=== PATIENT | female | born 1960 | race Hispanic/Latino ===

== ENCOUNTER 2018-07-22 10:52 | Outpatient (CLI) | payer MEDICARE ==
--- NOTE | 2018-07-22 14:17 | ULT ---
BILATERAL RENAL ULTRASOUND: Date: 07/22/18 HISTORY: Hypertension. Chronic kidney disease. COMPARISON: None. TECHNIQUE: Sagittal and transverse imaging of the kidneys performed. FINDINGS: Limited evaluation of the renal cortices. Solid or cortical masses could easily be obscured. Bilatera lly, no hydronephrosis. Right kidney measures 8.9 x 5.0 x 3.6 cm. Left kidney measures 9.6 x 4.5 x 4. 3 cm. Bladder is decompressed. Anechoic focus associated with the spleen measuring 4.7 x 4.5 x 6.2 cm may represent a splenic cyst. IMPRESSION: 1. Limited evaluation of the cortices. Grossly no hydronephrosis. 2. Possible splenic cyst. POS: [facility]
== END 2018-07-22 10:53 | disposition home or self-care (01) ==
LOC: BURULT 10:52
PROVIDERS: ATTEND Internal Medicine Nephrology
DX: I12.9 Hypertensive chronic kidney disease with stage 1 through stage 4 chronic kidney disease, or unspecified chronic kidney disease (principal); N18.4 Chronic kidney disease, stage 4 (severe)
CPT/HCPCS: 76770

== ENCOUNTER 2022-04-30 14:46 | Emergency (ER) | payer MEDICARE ==
[2022-04-30] MEDS ORDERED: Famotidine/PF 20 mg/2ml Vial ONE (15:47)
[2022-04-30] MEDS ORDERED: Ondansetron PF 4 MG/2 ML Vial ONE (15:47)
[2022-04-30 15:52] LABS: #Eosinphils 0.1 thou/uL (0.0-0.7); #Lymphocytes 0.7 thou/uL (1.20-3.40); #Monocytes 0.2 thou/uL (0.11-0.59); %Basophils 0.7 % (0.0-1.0); %Eosinophils 0.9 % (0.0-10.0); %Lymphocytes 11.1 % (21.0-51.0); %Monocytes 2.8 % (0.0-10.0); %Neutrophils 84.4 % (42.0-75.0); Hemoglobin 11.7 g/dL (12.0-16.0); Mean Corpuscular HGB CONC 32.7 g/dL (32.0-36.0); Mean Corpuscular Hemoglobin 31.9 pg (27.0-31.0); Mean Corpuscular Volume 97.6 fL (78.0-98.0); Mean Platelet Volume 8.6 fL (7.4-10.4); Platelet Count 132 thou/uL (130-400); RBC Distribution Width 13.6 % (11.5-14.5); Red Blood Cell (RBC) Count 3.67 mill/uL (4.20-5.40); White Blood Cell (WBC) Count 5.9 thou/uL (4.8-10.8)
[2022-04-30 16:17] LABS: ALT (SGPT) Less than 7 U/L (8-55); AST (SGOT) 11 U/L (5-34); Albumin 4.4 g/dL (3.4-4.8); Alkaline Phosphatase 59 U/L (40-110); Anion Gap 23 mmol/L (10-20); BUN (Urea Nitrogen) 110 mg/dL (9.8-20.1); Bilirubin, Total 0.5 mg/dL (0.2-1.2); Calc. Creatinine Clearance 0 mL/min (70-130); Calcium 6.7 mg/dL (7.8-10.44); Carbon Dioxide 12 mmol/L (23-31); Chloride 110 mmol/L (98-107); Estimated GFR 4; Globulin 3.4 g/dL (2.4-3.5); Glucose 110 mg/dL (80-115); Lipase 64 U/L (8-78); Potassium 4.8 mmol/L (3.5-5.1); Protein, Total 7.8 g/dL (5.8-8.1); Sodium 140 mmol/L (136-145)
[2022-04-30 16:26] LABS: CKMB 2.2 ng/mL (0-6.6)
[2022-04-30 17:17] LABS: Bilirubin Negative (Negative); Blood, Urine Trace (Negative); Glucose, Urine (Dipstick) Negative (Negative); Ketone, Urine Negative (Negative); Leukocyte Large (Negative); Nitrite Negative (Negative); Protein, Urine (Dipstick) > or equal to 300 mg/dL (Neg-Trace); Urobilinogen 0.2 mg/dL (Less than 2); pH, Urine 5.5 (5.0-9.0)
[2022-04-30 17:28] LABS: Clarity Cloudy (Clear)
[2022-04-30 17:29] LABS: Bacteria/HPF 4+ HPF (None Seen); Squamous Epithelial 0-3 HPF (0-3); WBC/HPF 21-50 HPF (0-3)
== END 2022-04-30 17:29 | disposition short-term general hospital (02) ==
LOC: BURERS 14:46
DX: N17.9 Acute kidney failure, unspecified (principal); D64.9 Anemia, unspecified; R11.2 Nausea with vomiting, unspecified; I13.2 Hypertensive heart and chronic kidney disease with heart failure and with stage 5 chronic kidney disease, or end stage renal disease; N18.6 End stage renal disease; I50.9 Heart failure, unspecified; Z79.899 Other long term (current) drug therapy
CPT/HCPCS: 36416; 71045; 80053; 81003; 81015; 82553; 83605; 83690; 84484; 85025; 93005; 94760; 96365; 96375; 36415-59; J2405; S0028